=== PATIENT | female | born 1945 | race Caucasian/White ===

== ENCOUNTER 2021-04-30 07:07 | Day surgery (SDC) | payer MEDICARE, OTHER ==
[2021-04-30] MEDS ORDERED: LACTATED RINGERS 1,000 ML IV ONE ×2 (07:19→08:41)
--- NOTE | 2021-04-30 07:41 | ANESTHESIA ---
Pre-Anesthesia VS, & Labs - Diagnosis + cologuard - Procedure colonoscopy Vital Signs: Temp Pulse Resp BP Pulse Ox 36.2 C L 92 18 138/84 H 96 04/30/21 07:13 04/30/21 07:13 04/30/21 07:13 04/30/21 07:13 04/30/21 07:13 Height: 5 ft 8 in Weight (kg): 65 kg Body Mass Index: 21.7 BMI Classification: Healthy weight - NPO >8 hours - Is Patient ?: No Home Medications and Allergies Home Medications: Ambulatory Orders Acetaminophen [Pain Relief] 1 tab PO PRN PRN 04/29/21 Ascorbic Acid [Vitamin C] 1 tab PO DAILY 04/29/21 Calcium Carb/Magnesium Hydrox [Antacid Extra Strngth Tab Chew] 1 tab PO DAILY 04/29/21 Cholecalciferol (Vitamin D3) [Vitamin D3] 1 cap PO DAILY 04/29/21 Psyllium Husk [Psyllium Fiber] 1 cap PO DAILY 04/29/21 Acetaminophen [Pain Relief] 1 tab PO PRN PRN 04/29/21 Ascorbic Acid [Vitamin C] 1 tab PO DAILY 04/29/21 Calcium Carb/Magnesium Hydrox [Antacid Extra Strngth Tab Chew] 1 tab PO DAILY 04/29/21 Cholecalciferol (Vitamin D3) [Vitamin D3] 1 cap PO DAILY 04/29/21 Psyllium Husk [Psyllium Fiber] 1 cap PO DAILY 04/29/21 Allergies/Adverse Reactions: Allergies Allergy/AdvReac Type Severity Reaction Status Date / Time aspirin Allergy Hives Verified 04/29/21 11:40 shellfish derived Allergy Anaphylaxis Verified 04/29/21 11:40 Anes History & Medical History - Anesthetic History Anesthesia Complications: reports: No previous complications Family history of Anesthesia Complications: Denies Family history of Malignant Hyperthermia: Denies - Medical History Cardiovascular: reports: None Pulmonary: reports: Shortness of breath Gastrointestinal: reports: Hemorrhoids Urinary: reports: None Musculoskeletal: reports: Other Endocrine/Autoimmune: reports: None Skin: reports: None Smoking Status: Former smoker Psychosocial: reports: Alcohol History of Cancer?: No - Surgical History Eyes Ears Nose Throat (EENT): reports: Other Gynecologic: reports: section Exam General: Alert, Oriented x3, Cooperative Dental: WNL Mouth Openin Fingerbreadth Neck Mobility: Normal Mallampati classification: I Thyromental Distance: 4-6 cm Respiratory: Lungs clear Cardiovascular: Regular rate Plan Anesthesia Type: Total IV Consent for Procedure(s) Verified and Reviewed: Yes Code Status: Attempt Resuscitation ASA classification: 2-Mild systemic disease Is this case an emergency?: No
[2021-04-30] MEDS ORDERED: PROPOFOL 500 MG/50 ML 500 MG/50 ML VIAL ONE (07:50)
[2021-04-30] MEDS ORDERED: GLYCOPYRROLATE 1 MG/5 ML VIAL ONE (08:39)
[2021-04-30 09:52] VITALS: BP 116/68
--- NOTE | 2021-04-30 12:42 | ANESTHESIA POST OP EVALUATION ---
Anesthesia Post Eval - Post Anesthesia Eval Vitals: Last Vital Signs Temp 36.6 C 04/30/21 09:30 Pulse 70 04/30/21 09:30 Resp 16 04/30/21 09:30 BP 116/68 04/30/21 09:30 Pulse Ox 99 04/30/21 09:30 CV Function Including HR & BP: Stable Pain Control: Satisfactory Nausea & Vomiting: Negative Mental Status: Baseline Respiratory Status: Airway Patent Hydration Status: Satisfactory Anesthesia Complications: None
== END 2021-04-30 07:08 | disposition home or self-care (01) ==
LOC: SDS 07:07
PROVIDERS: ATTEND Surgery
DX: R19.5 Other fecal abnormalities (principal); K64.8 Other hemorrhoids; J45.909 Unspecified asthma, uncomplicated; Z87.891 Personal history of nicotine dependence
CPT/HCPCS: 45378; J7120

== ENCOUNTER 2021-05-07 11:04 | Outpatient (CLI) | payer OTHER ==
--- NOTE | 2021-05-15 06:44 | Mammography Report ---
BILATERAL DIGITAL SCREENING MAMMOGRAM 3D/2D: 05/07/2021 CLINICAL: Routine screening. No prior exams were available for comparison. The tissue of both breasts is predominantly fatty. No significant masses, calcifications, or other findings are seen in either breast. IMPRESSION: NEGATIVE There is no mammographic evidence of malignancy. A 1 year screening mammogram is recommended. This exam was interpreted at Station ID: [id number]. NOTE: For mammograms, a report in lay terms will be sent to the patient. Approximately 15% of breast malignancies will not be visualized mammographically. In the management of a palpable breast mass, a negative mammogram must not discourage biopsy of a clinically suspicious lesion. Electronically Signed By: Oniel Singletary M.D. [email or web address]:05/14/2021 08:31:51 ACR BI-RADS Category 1: Negative 3341F PARENCHYMAL PATTERN: (F) - The breast(s) demonstrate(s) diffuse fatty replacement. BI-RADS CATEGORY: (1) - 1 RECOMMENDATION: (ANNUAL) - Recommend routine annual screening mammography. [id number] 1 year screening LATERALITY: (B)
== END 2021-05-07 11:05 | disposition home or self-care (01) ==
LOC: DI.N 11:04
PROVIDERS: ATTEND Nurse Practitioner Family
DX: Z12.31 Encounter for screening mammogram for malignant neoplasm of breast (principal)